=== PATIENT | male | born 1955 | race Caucasian/White ===

== ENCOUNTER → 2017-08-15 | Outpatient (CLI) | payer BC ==
[~2017-08-15] MED LIST: ASPI-715 PO; ASPI81TA94 PO; LEVO137T23 PO; [UNRECOGNIZED DRUG - CODE] PO
--- NOTE | 2017-08-15 16:39 | RADIOLOGY IMAGING REPORT ---
FACILITY: [facility] PATIENT NAME: Brayan Abreu : 1955 MR: [id number] V: [id number] EXAM DATE: ORDERING PHYSICIAN: LUI KEVIN TECHNOLOGIST: Location: [facility] [place] Patient: Brayan Abreu : 1955 Visit/Account:[id number] Date of Sevice: 08/15/2017 EXAMINATION: Right Lower Extremity Venous Ultrasound HISTORY: Leg redness and swelling. TECHNIQUE: Ultrasound evaluation of the right lower extremity veins was performed with color and spe ctral Doppler and compression views. COMPARISON: None. FINDINGS: The right common femoral, femoral, proximal deep femoral, popliteal, and segmentally visualized deep calf veins are patent and compressible, without evidence of intraluminal thrombus. There is thrombus in the right greater saphenous vein, beginning 0.9 cm distal to the saphenofemoral junction and extending inferiorly to the level of the knee. IMPRESSION: 1. Superficial thrombophlebitis. Thrombus is present in the greater saphenous vein beginning 0.9 cm p ast the saphenofemoral junction and extending inferiorly to the level of the knee. 2. No evidence of DVT in the right leg. Findings were discussed with LUI KEVIN at 08/15/2017 4:34 PM. Report Dictated By: Devendra Heller MD at 08/15/2017 4:24 PM Report E-Signed By: Devendra Heller MD at 08/15/2017 4:35 PM WSN:[id number]
== END ==
LOC: US 14:38
PROVIDERS: ATTEND Nurse Practitioner Family
DX: I80.8 Phlebitis and thrombophlebitis of other sites (principal)

== ENCOUNTER → 2017-10-22 | Outpatient (CLI) | payer BC ==
--- NOTE | 2017-10-22 15:45 | RADIOLOGY IMAGING REPORT ---
FACILITY: [facility] [place] PATIENT NAME: Brayan Abreu : 1955 MR: [id number] V: [id number] EXAM DATE: ORDERING PHYSICIAN: LUI KEVIN TECHNOLOGIST: Location: [facility] Patient: Brayan Abreu : 1955 Visit/Account:[id number] Date of Sevice: 10/22/2017 Right lower extremity venous Doppler: HISTORY: Superficial clot seen on ultrasound of 08/15/2017 COMPARISON: 08/15/2017 FINDINGS: Grayscale and Doppler evaluation was performed of the right lower extremity deep venous sys tem. Flow is documented in the common femoral, femoral, popliteal and trifurcation veins. Vessels are com pressible and flow can be augmented. Flow is documented in the posterior tibial and peroneal veins. Greater saphenous vein is thrombosed extending from just below the knee to the mid to proximal thigh and is not close to the saphenofemoral junction. This vessel is not expanded and thrombus appears m ore chronic when compared to the prior study. No Skelton's cyst is present in the popliteal fossa. Left common femoral vein is patent with a normal waveform. IMPRESSION: 1. No right lower extremity DVT. 2. Superficial thrombophlebitis involving the greater saphenous vein, thrombus in the vein now appea rs more chronic and slightly less extensive (extends to the mid to proximal thigh.) . Report Dictated By: Patricia Garza MD at 10/22/2017 2:45 PM Report E-Signed By: Patricia Garza MD at 10/22/2017 3:41 PM WSN:[id number]
== END ==
LOC: US 01:48
PROVIDERS: ATTEND Nurse Practitioner Family
DX: I80.00 Phlebitis and thrombophlebitis of superficial vessels of unspecified lower extremity (principal)